=== PATIENT | male | born 1980 | race Caucasian/White ===

== ENCOUNTER 2018-04-17 20:45 | Emergency (ER) | payer SELFPAY | END 2018-04-17 21:13 | disposition left against medical advice (07) | LOC: M ED 20:45 | DX: Z53.21 Procedure and treatment not carried out due to patient leaving prior to being seen by health care provider (principal) ==

== ENCOUNTER 2020-08-12 23:18 | Emergency (ER) | payer OTHER ==
[~2020-08-12] VITALS: Ht 177.8 cm; Wt 69.2 kg
[~2020-08-12 23:18] MED LIST: MAVY1TAB PO; VIVI380I IM
[2020-08-13] MEDS ORDERED: LIDOCAINE 2% MDV 20ML VIAL SC ONE (01:15)
--- NOTE | 2020-08-13 02:03 | REPVR ---
PROCEDURE INFORMATION: Exam: XR Right Finger(s) Exam date and time: 08/13/2020 1:36 AM Age: 40 years old Clinical indication: Pain; Finger(s); Right; Patient HX: 4th digit lac, metal frag in 3rd digit from previous injury; Additional info: Laceration right ring finger/ ? bone involvement or fb TECHNIQUE: Imaging protocol: XR Right finger. Exam focused on the 4th digit. Views: Minimum 2 views. COMPARISON: No relevant prior studies available. FINDINGS: Limitations: Bandages over the 4th digit. Bones/joints: No acute fracture. No dislocation. Limited evaluation of the bone. Soft tissues: Metallic foreign body in the dorsal radial aspect of the 3rd digit near the PIP joint measuring 3.0 x 2.5 mm. Limited evaluation of the soft tissue. Soft tissue swelling of the proximal 4th digit. IMPRESSION: 1. No acute fracture. 2. Metallic foreign body in the dorsal radial aspect of the 3rd digit near the PIP joint. 3. Soft tissue swelling of the proximal 4th digit. Electronically signed by: Rubio Espinal On 08/13/2020 02:03:42 AM
[2020-08-13] MEDS ORDERED: KEFL500C17 PO (02:19)
[2020-08-13 02:26] VITALS: BP 109/72
== END 2020-08-13 02:32 | disposition home or self-care (01) ==
LOC: M ED 23:18
DX: S61.224A Laceration with foreign body of right ring finger without damage to nail, initial encounter (principal); W25.XXXA Contact with sharp glass, initial encounter; Y92.099 Unspecified place in other non-institutional residence as the place of occurrence of the external cause; Y93.89 Activity, other specified; Y99.9 Unspecified external cause status; F11.10 Opioid abuse, uncomplicated; Z86.19 Personal history of other infectious and parasitic diseases; F17.200 Nicotine dependence, unspecified, uncomplicated; Z91.030 Bee allergy status